=== PATIENT | male | born 1960 | race American Indian/Alaskan Native ===

== ENCOUNTER 2019-03-12 14:22 | Emergency (ER) | payer MEDICAID ==
--- NOTE | 2019-03-12 16:11 | Emergency Department Report ---
ED General Adult HPI - General Chief complaint: Medical Clearance Stated complaint: BEHAVIORIAL ISSUES Time Seen by Provider: 03/12/19 14:54 Source: patient, EMS Mode of arrival: Stretcher Limitations: No Limitations - History of Present Illness Initial comments: The presents to the emergency department from [facility] because he refused to take his medications yesterday and also refused to eat today. Patient denies suicidal or homicidal ideation. Patient also denies auditory or visual hallucinations. Patient states yesterday he refused to take his medications once and today refused to eat because he did not want to. The patient is able to answer all my questions appropriately Severity scale (0 -10): 0 Consistency: constant Improves with: none Worsens with: none Associated Symptoms: denies other symptoms Treatments Prior to Arrival: none - Related Data Allergies Allergy/AdvReac Type Severity Reaction Status Date / Time No Known Allergies Allergy Unverified 03/12/19 14:24 ED Review of Systems ROS: Stated complaint: BEHAVIORIAL ISSUES Other details as noted in HPI Comment: All other systems reviewed and negative Constitutional: denies: chills, fever Eyes: denies: eye pain, eye discharge, vision change ENT: denies: ear pain, throat pain Respiratory: denies: cough, shortness of breath, wheezing Cardiovascular: denies: chest pain, palpitations Endocrine: no symptoms reported Gastrointestinal: denies: abdominal pain, nausea, diarrhea Genitourinary: denies: urgency, dysuria Musculoskeletal: denies: back pain, joint swelling, arthralgia Skin: denies: rash, lesions Neurological: denies: headache, weakness, paresthesias Psychiatric: denies: anxiety, depression Hematological/Lymphatic: denies: easy bleeding, easy bruising ED Past Medical Hx - Past Medical History Hx Psychiatric Treatment: (bipolar, MDD) - Social History Smoking Status: Never Smoker Substance Use Type: None ED Physical Exam - General Limitations: No Limitations General appearance: alert, in no apparent distress - Head Head exam: Present: atraumatic, normocephalic - Eye Eye exam: Present: normal appearance, PERRL, EOMI - ENT ENT exam: Present: mucous membranes moist - Neck Neck exam: Present: normal inspection - Respiratory Respiratory exam: Present: normal lung sounds bilaterally. Absent: respiratory distress - Cardiovascular Cardiovascular Exam: Present: regular rate, normal rhythm. Absent: systolic murmur, diastolic murmur, rubs, gallop - GI/Abdominal GI/Abdominal exam: Present: soft, normal bowel sounds. Absent: distended, tenderness - Rectal Rectal exam: Present: deferred - Extremities Exam Extremities exam: Present: normal inspection - Back Exam Back exam: Present: normal inspection - Neurological Exam Neurological exam: Present: alert, oriented X3, CN II-XII intact. Absent: motor sensory deficit - Psychiatric Psychiatric exam: Present: normal affect, normal mood. Absent: homicidal ideation, suicidal ideation - Skin Skin exam: Present: warm, dry, intact, normal color. Absent: rash ED Course Vital Signs 03/12/19 14:31 Temperature 98.8 F Pulse Rate 67 Respiratory 17 Rate Blood Pressure 165/72 [Left] O2 Sat by Pulse 97 Oximetry ED Medical Decision Making - Medical Decision Making Contacted the Nurse at [facility] and the patient was discussed in detail. The reason for presentation was confirmed with the nurse. Patient will be sent back to their facility Critical care attestation.: If time is entered above; I have spent that time in minutes in the direct care of this critically ill patient, excluding procedure time. ED Disposition Clinical Impression: Behavior concern in adult Disposition: DC-01 TO HOME OR SELFCARE Is pt being admited?: No Does the pt Need Aspirin: No Condition: Stable Additional Instructions: return if worse Referrals: [facility] [Outside] - 3-5 Days Time of Disposition: 16:12
[2019-03-12 16:51] VITALS: BP 159/73
== END 2019-03-12 17:27 | disposition home or self-care (01) ==
LOC: ED 14:22 → EEVIPCON 14:22 → ED 17:27
DX: R46.89 Other symptoms and signs involving appearance and behavior (principal); F31.9 Bipolar disorder, unspecified; F32.9 Major depressive disorder, single episode, unspecified

== ENCOUNTER 2020-04-19 11:34 | Emergency (ER) | payer MEDICAID ==
--- NOTE | 2020-04-19 12:36 | Emergency Department Report ---
ED Psych HPI - General Chief Complaint: Psych Stated Complaint: SUICIDAL IDEATION Time Seen by Provider: 04/19/20 11:54 Source: EMS Mode of arrival: Ambulatory - History of Present Illness Initial Comments: 60-year male with a past medical history of bipolar disorder, schizophrenia, and hypertension presents to the hospital with complaints of suicidal ideation since breaking up with his girlfriend this morning. Patient states he tried to drown herself in the pool this morning. He has been noncompliant with his blood pressure medication and psychiatric medication for the last 3 months. He denies auditory hallucinations he denies any complaints of cough, fever, chest pain, shortness of breath, or abdominal pain. - Related Data Allergies Allergy/AdvReac Type Severity Reaction Status Date / Time No Known Allergies Allergy Unverified 03/12/19 14:24 ED Review of Systems ROS: Stated complaint: SUICIDAL IDEATION Other details as noted in HPI ED Past Medical Hx - Past Medical History Previous Medical History?: Yes Hx Hypertension: Yes Hx Psychiatric Treatment: Yes (bipolar, MDD) - Surgical History Past Surgical History?: No - Social History Smoking Status: Current Every Day Smoker Substance Use Type: None ED Physical Exam - General Limitations: No Limitations - Other Other exam information: General: No acute distress Head: Atraumatic Eyes: normal appearance ENT: Moist mucous membranes Neck: Normal appearance, no midline tenderness Chest: Clear to auscultation bilaterally CV: Regular rate and rhythm Abdomen: Soft, normal bowel sounds, nontender, nondistended, no rebound or guarding Back: Normal inspection Extremity: Normal inspection, full range of motion Neuro: Alert O x 3, no facial asymmetry, speech clear, no gross motor sensory deficit Psych: Appropriate behavior Skin: No rash ED Course Vital Signs 04/19/20 04/19/20 04/19/20 11:37 18:51 21:36 Temperature 99.9 F H 99.9 F H Pulse Rate 107 H 88 Respiratory 18 18 14 Rate Blood Pressure 169/90 126/67 [Left] O2 Sat by Pulse 95 94 97 Oximetry ED Medical Decision Making - Lab Data Result diagrams: 04/19/20 12:32 04/19/20 12:32 Lab Results 04/19/20 04/19/20 04/19/20 Range/Units 12:32 12:32 12:32 WBC 15.3 H (4.5-11.0) K/mm3 RBC 5.04 H (3.65-5.03) M/mm3 Hgb 15.0 (11.8-15.2) gm/dl Hct 45.4 (35.5-45.6) % MCV 90 (84-94) fl MCH 30 (28-32) pg MCHC 33 (32-34) % RDW 14.3 (13.2-15.2) % Plt Count 317 (140-440) K/mm3 Lymph % (Auto) 15.2 (13.4-35.0) % [place] % (Auto) 7.6 H (0.0-7.3) % Eos % (Auto) 0.5 (0.0-4.3) % Baso % (Auto) 0.5 (0.0-1.8) % Lymph # 2.3 (1.2-5.4) K/mm3 [place] # 1.2 H (0.0-0.8) K/mm3 Eos # 0.1 (0.0-0.4) K/mm3 Baso # 0.1 (0.0-0.1) K/mm3 Seg Neutrophils % 76.2 H (40.0-70.0) % Seg Neutrophils # 11.7 H (1.8-7.7) K/mm3 Sodium 142 (137-145) mmol/L Potassium 3.8 (3.6-5.0) mmol/L Chloride 102.0 (98-107) mmol/L Carbon Dioxide 25 (22-30) mmol/L Anion Gap 19 mmol/L BUN 25 H (9-20) mg/dL Creatinine 1.3 (0.8-1.3) mg/dL Estimated GFR > 60 ml/min BUN/Creatinine Ratio 19 % Glucose 143 H (75-100) mg/dL Calcium 9.6 (8.4-10.2) mg/dL Total Bilirubin 0.60 (0.1-1.2) mg/dL AST 21 (5-40) units/L ALT 20 (7-56) units/L Alkaline Phosphatase 99 (35-129) units/L Total Protein 7.5 (6.3-8.2) g/dL Albumin 4.6 (3.9-5) g/dL Albumin/Globulin Ratio 1.6 % Urine Color (Yellow) Urine Turbidity (Clear) Urine pH (5.0-7.0) Ur Specific [place] (1.003-1.030) Urine Protein (Negative) mg/dL Urine Glucose (UA) (Negative) mg/dL Urine Ketones (Negative) mg/dL Urine Blood (Negative) Urine Nitrite (Negative) Urine Bilirubin (Negative) Urine Urobilinogen (<2.0) mg/dL Ur Leukocyte Esterase (Negative) Urine WBC (Auto) (0.0-6.0) /HPF Urine RBC (Auto) (0.0-6.0) /HPF U Epithel Cells (Auto) (0-13.0) /HPF Urine Mucus /HPF Salicylates < 0.3 L (2.8-20.0) mg/dL Urine Opiates Screen Urine Methadone Screen Acetaminophen (10.0-30.0) ug/mL Ur Barbiturates Screen Ur Phencyclidine Scrn Ur Amphetamines Screen U Benzodiazepines Scrn Urine Cocaine Screen U Marijuana (THC) Screen Drugs of Abuse Note Plasma/Serum Alcohol (0-0.07) % 04/19/20 04/19/20 04/19/20 Range/Units 12:32 12:32 12:51 WBC (4.5-11.0) K/mm3 RBC (3.65-5.03) M/mm3 Hgb (11.8-15.2) gm/dl Hct (35.5-45.6) % MCV (84-94) fl MCH (28-32) pg MCHC (32-34) % RDW (13.2-15.2) % Plt Count (140-440) K/mm3 Lymph % (Auto) (13.4-35.0) % [place] % (Auto) (0.0-7.3) % Eos % (Auto) (0.0-4.3) % Baso % (Auto) (0.0-1.8) % Lymph # (1.2-5.4) K/mm3 [place] # (0.0-0.8) K/mm3 Eos # (0.0-0.4) K/mm3 Baso # (0.0-0.1) K/mm3 Seg Neutrophils % (40.0-70.0) % Seg Neutrophils # (1.8-7.7) K/mm3 Sodium (137-145) mmol/L Potassium (3.6-5.0) mmol/L Chloride (98-107) mmol/L Carbon Dioxide (22-30) mmol/L Anion Gap mmol/L BUN (9-20) mg/dL Creatinine (0.8-1.3) mg/dL Estimated GFR ml/min BUN/Creatinine Ratio % Glucose (75-100) mg/dL Calcium (8.4-10.2) mg/dL Total Bilirubin (0.1-1.2) mg/dL AST (5-40) units/L ALT (7-56) units/L Alkaline Phosphatase (35-129) units/L Total Protein (6.3-8.2) g/dL Albumin (3.9-5) g/dL Albumin/Globulin Ratio % Urine Color Yellow (Yellow) Urine Turbidity Clear (Clear) Urine pH 7.0 (5.0-7.0) Ur Specific [place] 1.016 (1.003-1.030) Urine Protein <15 mg/dl (Negative) mg/dL Urine Glucose (UA) Neg (Negative) mg/dL Urine Ketones Neg (Negative) mg/dL Urine Blood Sm (Negative) Urine Nitrite Neg (Negative) Urine Bilirubin Neg (Negative) Urine Urobilinogen < 2.0 (<2.0) mg/dL Ur Leukocyte Esterase Neg (Negative) Urine WBC (Auto) 1.0 (0.0-6.0) /HPF Urine RBC (Auto) 7.0 (0.0-6.0) /HPF U Epithel Cells (Auto) < 1.0 (0-13.0) /HPF Urine Mucus Few /HPF Salicylates (2.8-20.0) mg/dL Urine Opiates Screen Urine Methadone Screen Acetaminophen 5.0 L (10.0-30.0) ug/mL Ur Barbiturates Screen Ur Phencyclidine Scrn Ur Amphetamines Screen U Benzodiazepines Scrn Urine Cocaine Screen U Marijuana (THC) Screen Drugs of Abuse Note Plasma/Serum Alcohol < 0.01 (0-0.07) % 04/19/20 Range/Units 12:51 WBC (4.5-11.0) K/mm3 RBC (3.65-5.03) M/mm3 Hgb (11.8-15.2) gm/dl Hct (35.5-45.6) % MCV (84-94) fl MCH (28-32) pg MCHC (32-34) % RDW (13.2-15.2) % Plt Count (140-440) K/mm3 Lymph % (Auto) (13.4-35.0) % [place] % (Auto) (0.0-7.3) % Eos % (Auto) (0.0-4.3) % Baso % (Auto) (0.0-1.8) % Lymph # (1.2-5.4) K/mm3 [place] # (0.0-0.8) K/mm3 Eos # (0.0-0.4) K/mm3 Baso # (0.0-0.1) K/mm3 Seg Neutrophils % (40.0-70.0) % Seg Neutrophils # (1.8-7.7) K/mm3 Sodium (137-145) mmol/L Potassium (3.6-5.0) mmol/L Chloride (98-107) mmol/L Carbon Dioxide (22-30) mmol/L Anion Gap mmol/L BUN (9-20) mg/dL Creatinine (0.8-1.3) mg/dL Estimated GFR ml/min BUN/Creatinine Ratio % Glucose (75-100) mg/dL Calcium (8.4-10.2) mg/dL Total Bilirubin (0.1-1.2) mg/dL AST (5-40) units/L ALT (7-56) units/L Alkaline Phosphatase (35-129) units/L Total Protein (6.3-8.2) g/dL Albumin (3.9-5) g/dL Albumin/Globulin Ratio % Urine Color (Yellow) Urine Turbidity (Clear) Urine pH (5.0-7.0) Ur Specific [place] (1.003-1.030) Urine Protein (Negative) mg/dL Urine Glucose (UA) (Negative) mg/dL Urine Ketones (Negative) mg/dL Urine Blood (Negative) Urine Nitrite (Negative) Urine Bilirubin (Negative) Urine Urobilinogen (<2.0) mg/dL Ur Leukocyte Esterase (Negative) Urine WBC (Auto) (0.0-6.0) /HPF Urine RBC (Auto) (0.0-6.0) /HPF U Epithel Cells (Auto) (0-13.0) /HPF Urine Mucus /HPF Salicylates (2.8-20.0) mg/dL Urine Opiates Screen Negative Urine Methadone Screen Negative Acetaminophen (10.0-30.0) ug/mL Ur Barbiturates Screen Negative Ur Phencyclidine Scrn Negative Ur Amphetamines Screen Negative U Benzodiazepines Scrn Negative Urine Cocaine Screen Negative U Marijuana (THC) Screen Negative Drugs of Abuse Note Disclamer Plasma/Serum Alcohol (0-0.07) % - EKG Data -: EKG Interpreted by Me EKG shows normal: sinus rhythm, ST-T waves (no stemi) Rate: normal (92) - Radiology Data Radiology results: report reviewed XR chest routine 2V INDICATION / CLINICAL INFORMATION: elevated wbc count COMPARISON: None available. FINDINGS: SUPPORT DEVICES: None. HEART / MEDIASTINUM: No significant abnormality. LUNGS / PLEURA: Lungs are clear. Costophrenic sulci are sharp. No pneumothorax. ADDITIONAL FINDINGS: No significant additional findings. IMPRESSION: 1. No acute findings. - Medical Decision Making Patient presents to the hospital requesting mental health for suicidal ideation. Patient not currently taking any medications for chronic hypertension or his underlying psychiatric disorder. Suicidal thoughts with plan triggered by recent break-up with a girlfriend. Patient did have a mild tachycardia on initial vital signs but corrected upon EKG with sinus rhythm noted. repeat vit als show improvement in tachycardia and bp. Patient has a mild leukocytosis with a normal chest x-ray, normal UA, and no infectious symptoms. Patient is noted to have mild dehydration which can be corrected with oral p.o. intake. Patient medically clear for inpatient psychiatric admission Critical Care Time: No Critical care attestation.: If time is entered above; I have spent that time in minutes in the direct care of this critically ill patient, excluding procedure time. ED Disposition Clinical Impression: Suicidal ideations, Medical clearance for psychiatric admission, Schizophrenia, Depression Disposition: DC/TX-65 PSY HOSP/PSY UNIT Is pt being admited?: No Condition: Stable
[2020-04-19 13:06] LABS: Bilirubin,Urine NEG (Negative); Blood,Urine SM (Negative); Color,Urine Yellow (Yellow); Mucus,Urine FEW /HPF; Protein,Urine <15 mg/dL mg/dL (Negative); Urobilinogen,Urine < 2.0 mg/dL (<2.0)
[2020-04-19 13:14] LABS: Amphetamine Screen,Urine Negative; Benzodiazepines Screen,Urine Negative; Cannabinoid Screen,Urine Negative; Cocaine Screen,Urine Negative; Methadone Screen,Urine Negative; Opiate Screen,Urine Negative
[2020-04-19 13:36] LABS: Basophils # (Auto) 0.1 K/mm3 (0.0-0.1); Basophils % (Auto) 0.5 % (0.0-1.8); Eosinophils # (Auto) 0.1 K/mm3 (0.0-0.4); Eosinophils % (Auto) 0.5 % (0.0-4.3); Hematocrit 45.4 % (35.5-45.6); Lymphocytes # (Auto) 2.3 K/mm3 (1.2-5.4); Lymphocytes % (Auto) 15.2 % (13.4-35.0); Mean Corpuscular HGB Conc 33 % (32-34); Mean Corpuscular Volume 90 fl (84-94); Monocytes # (Auto) 1.2 K/mm3 (0.0-0.8); Monocytes % (Auto) 7.6 % (0.0-7.3); Platelet Count 317 K/mm3 (140-440); Red Blood Count 5.04 M/mm3 (3.65-5.03); Red Cell Distribution Width 14.3 % (13.2-15.2)
[2020-04-19 13:58] LABS: Alanine Aminotransferase 20 units/L (7-56); Albumin 4.6 g/dL (3.9-5); BUN/Creatinine Ratio 19; Blood Urea Nitrogen 25 mg/dL (9-20); Calcium 9.6 mg/dL (8.4-10.2); Hemolysis Index 14
--- NOTE | 2020-04-19 17:17 | XRay Report ---
XR chest routine 2V INDICATION / CLINICAL INFORMATION: elevated wbc count COMPARISON: None available. FINDINGS: SUPPORT DEVICES: None. HEART / MEDIASTINUM: No significant abnormality. LUNGS / PLEURA: Lungs are clear. Costophrenic sulci are sharp. No pneumothorax. ADDITIONAL FINDINGS: No significant additional findings. IMPRESSION: 1. No acute findings. Signer Name: Kelvin Avila MD Signed: 04/19/2020 5:13 PM Workstation Name: [id number]
[2020-04-19 18:52] VITALS: BP 126/67
== END 2020-04-20 01:15 ==
LOC: ED 11:34
DX: R45.851 Suicidal ideations (principal); F20.9 Schizophrenia, unspecified; F32.9 Major depressive disorder, single episode, unspecified; Z04.6 Encounter for general psychiatric examination, requested by authority; I10 Essential (primary) hypertension; F17.200 Nicotine dependence, unspecified, uncomplicated
CPT/HCPCS: 36415; 71046; 80053; 80307; 80320; 81001; 85025; 93005; G0480

== ENCOUNTER 2021-05-23 00:24 | Emergency (ER) | payer MEDICAID ==
[2021-05-23 01:10] VITALS: BP 168/101
[2021-05-23] MEDS ORDERED: traZODone 50 MG TAB PO ONE (02:50)
--- NOTE | 2021-05-23 03:13 | Emergency Department Report ---
ED General Adult HPI - General Chief complaint: Medical Clearance Stated complaint: INSUMNIA/CHEST PAIN Source: patient, EMS Mode of arrival: Ambulatory Limitations: No Limitations - History of Present Illness Initial comments: Patient is a 61-year-old white male with a history of bipolar disorder, major depressive disorder, and hypertension who presented to the ED with complaint of persistent insomnia after his girlfriend was diagnosed with cancer and is currently undergoing chemotherapy at another hospital. Patient states that whenever he goes to sleep he only sleeps for 1 hour, and the rest of the night he keeps thinking about his girlfriend. Patient denies suicidal or homicidal ideation, hallucinations, nausea and vomiting, chest pain or shortness of breath, abdominal pain, dizziness, syncope, headache, fever, chills, cough or back pain. MD Complaint: Insomnia, chronic depression -: Sudden, days(s) (20) Location: head Radiation: non-radiation Severity scale (0 -10): 0 Quality: constant Consistency: intermittent Improves with: none Worsens with: none Associated Symptoms: denies other symptoms, loss of appetite, malaise. denies: confusion, chest pain, cough, diaphoresis, fever/chills, headaches, nausea/vomiting, rash, seizure, shortness of breath, syncope, weakness Treatments Prior to Arrival: none - Related Data Previous Rx's Medication Instructions Recorded Last Taken Type traZODone [Desyrel] 50 mg PO QHS PRN #30 tab 05/23/21 Unknown Rx Allergies Allergy/AdvReac Type Severity Reaction Status Date / Time No Known Allergies Allergy Verified 05/23/21 01:02 ED Review of Systems ROS: Stated complaint: INSUMNIA/CHEST PAIN Other details as noted in HPI Constitutional: other (Insomnia). denies: chills, fever Eyes: denies: eye pain, eye discharge, vision change ENT: denies: ear pain, throat pain Respiratory: denies: cough, shortness of breath, wheezing Cardiovascular: denies: chest pain, palpitations Endocrine: no symptoms reported Gastrointestinal: denies: abdominal pain, nausea, diarrhea Genitourinary: denies: urgency, dysuria Musculoskeletal: denies: back pain, joint swelling, arthralgia Skin: denies: rash, lesions Neurological: denies: headache, weakness, paresthesias Psychiatric: anxiety, depression. denies: auditory hallucinations, visual hallucinations, homicidal thoughts, suicidal thoughts Hematological/Lymphatic: denies: easy bleeding, easy bruising ED Past Medical Hx - Past Medical History Hx Hypertension: Yes Hx Psychiatric Treatment: (bipolar, MDD) - Social History Smoking Status: Current Every Day Smoker Substance Use Type: None - Medications Home Medications: Home Medications Medication Instructions Recorded Confirmed Last Taken Type traZODone [Desyrel] 50 mg PO QHS PRN #30 tab 05/23/21 Unknown Rx ED Physical Exam - General Limitations: No Limitations General appearance: alert, in no apparent distress - Head Head exam: Present: atraumatic, normocephalic, normal inspection - Eye Eye exam: Present: normal appearance, PERRL, EOMI Pupils: Present: normal accommodation - ENT ENT exam: Present: normal exam, normal orophraynx, mucous membranes moist, TM's normal bilaterally, normal external ear exam - Neck Neck exam: Present: normal inspection, full ROM - Respiratory Respiratory exam: Present: normal lung sounds bilaterally. Absent: respiratory distress, wheezes, rales, rhonchi, chest wall tenderness, accessory muscle use, decreased breath sounds, prolonged expiratory - Cardiovascular Cardiovascular Exam: Present: regular rate, normal rhythm, normal heart sounds. Absent: systolic murmur, diastolic murmur, rubs, gallop - GI/Abdominal GI/Abdominal exam: Present: soft, normal bowel sounds. Absent: tenderness, guarding, rebound, hyperactive bowel sounds, hypoactive bowel sounds - Extremities Exam Extremities exam: Present: normal inspection, full ROM, normal capillary refill - Back Exam Back exam: Present: normal inspection, full ROM. Absent: tenderness, CVA tenderness (R), CVA tenderness (L), muscle spasm, paraspinal tenderness, vertebral tenderness - Neurological Exam Neurological exam: Present: alert, oriented X3, CN II-XII intact, normal gait, reflexes normal - Psychiatric Psychiatric exam: Present: normal affect, normal mood, depressed, anxious. Absent: flat affect, homicidal ideation, suicidal ideation - Skin Skin exam: Present: warm, dry, intact, normal color. Absent: rash ED Course Vital Signs 05/23/21 01:09 Temperature 98.9 F Pulse Rate 83 Respiratory 20 Rate Blood Pressure 168/101 [Left] O2 Sat by Pulse 96 Oximetry ED Medical Decision Making - Medical Decision Making This is a 61-year-old white male with a history of bipolar disorder, major depressive disorder, and hypertension who presented to the ED with complaint of persistent insomnia after his girlfriend was diagnosed with cancer and is currently undergoing chemotherapy at another hospital. Patient states that whenever he goes to sleep he only sleeps for 1 hour, and the rest of the night he keeps thinking about his girlfriend. In the ED, patient is alert and oriented x3 and is not in any distress, but appears anxious. Patient is however not suicidal or homicidal. Patient was treated in the ED with trazodone 50 mg p.o. x1 and discharged home on the same. Patient was advised to follow-up with his primary care physician in 3 to 5 days for reevaluation or return to the ED immediately if symptoms get worse. - Differential Diagnosis Insomnia; chronic depression; anxiety Critical care attestation.: If time is entered above; I have spent that time in minutes in the direct care of this critically ill patient, excluding procedure time. ED Disposition Clinical Impression: Insomnia due to psychological stress, Chronic depressive disorder Disposition: 01 HOME / SELF CARE / HOMELESS Is pt being admited?: No Does the pt Need Aspirin: No Condition: Stable Instructions: Persistent Depressive Disorder, Adult, [id number], Insomnia Additional Instructions: Take medication at night as needed for insomnia. Follow-up with your primary care physician in 3 to 5 days for reevaluation. Return to the ED immediately if symptoms get worse Prescriptions: traZODone [Desyrel] 50 mg PO QHS PRN #30 tab PRN Reason: Insomnia [facility] - 3-5 Days Time of Disposition: 03:12 Print Language: ROMANSH
== END 2021-05-23 03:52 | disposition home or self-care (01) ==
LOC: ED 00:24
DX: F51.02 Adjustment insomnia (principal); F34.1 Dysthymic disorder; I10 Essential (primary) hypertension; F17.200 Nicotine dependence, unspecified, uncomplicated
CPT/HCPCS: 99283

== ENCOUNTER 2021-05-23 15:21 | Emergency (ER) | payer MEDICAID ==
--- NOTE | 2021-05-23 17:58 | Emergency Department Report ---
ED General Adult HPI - General Chief complaint: Weakness Stated complaint: WEAKNESS Time Seen by Provider: 05/23/21 17:33 Source: patient Mode of arrival: Stretcher Limitations: No Limitations - History of Present Illness Initial comments: 62-year-old male patient presents for insomnia. Patient was seen early this morning for the same complaint. He denies any SI/HI or hallucinations. No chest pain, headache, dizziness, or shortness of breath. Patient was prescribed trazodone and states he has not filled his prescription. - Related Data Previous Rx's Medication Instructions Recorded Last Taken Type traZODone [Desyrel] 50 mg PO QHS PRN #30 tab 05/23/21 Unknown Rx Allergies Allergy/AdvReac Type Severity Reaction Status Date / Time No Known Allergies Allergy Verified 05/23/21 01:02 ED Review of Systems ROS: Stated complaint: WEAKNESS Other details as noted in HPI Constitutional: denies: chills, fever, malaise Respiratory: denies: cough, shortness of breath Cardiovascular: denies: chest pain Gastrointestinal: denies: abdominal pain Neurological: denies: headache, numbness, paresthesias ED Past Medical Hx - Past Medical History Hx Hypertension: Yes Hx Psychiatric Treatment: (bipolar, MDD) - Social History Smoking Status: Current Every Day Smoker Substance Use Type: None - Medications Home Medications: Home Medications Medication Instructions Recorded Confirmed Last Taken Type traZODone [Desyrel] 50 mg PO QHS PRN #30 tab 05/23/21 Unknown Rx ED Physical Exam - General Limitations: No Limitations General appearance: alert, in no apparent distress - Head Head exam: Present: atraumatic, normocephalic - Eye Eye exam: Present: normal appearance. Absent: scleral icterus - Respiratory Respiratory exam: Present: normal lung sounds bilaterally. Absent: respiratory distress - Cardiovascular Cardiovascular Exam: Present: regular rate, normal rhythm - Neurological Exam Neurological exam: Present: alert, oriented X3 - Psychiatric Psychiatric exam: Present: normal affect, normal mood - Skin Skin exam: Present: warm, dry, intact, normal color. Absent: rash ED Course Vital Signs 05/26/21 13:23 Temperature 98.2 F Pulse Rate 78 Respiratory 18 Rate Blood Pressure 160/84 [160/84] O2 Sat by Pulse 98 Oximetry ED Medical Decision Making - Medical Decision Making 62-year-old male patient presents for insomnia. Patient was seen early this morning for the same complaint. He denies any SI/HI or hallucinations. No chest pain, headache, dizziness, or shortness of breath. Patient was prescribed trazodone and states he has not filled his prescription. After initial evaluation, patient now stating he would like some pain medicine for chronic knee pain. He denies any injuries to his knees, swelling, skin changes, numbness/tingling/weakness in his legs, or fever/chills/sweats or history of cancer. Patient is also requesting sleep medicine again even though he just had a prescription for trazodone. Recommend patient feels his trazodone prescription and follows up outpatient with primary care or psychiatrist. Critical care attestation.: If time is entered above; I have spent that time in minutes in the direct care of this critically ill patient, excluding procedure time. ED Disposition Clinical Impression: Insomnia due to psychological stress Disposition: 01 HOME / SELF CARE / HOMELESS Is pt being admited?: No Condition: Stable Instructions: Insomnia Referrals: [facility] [Provider Group] - 3-5 Days
[2021-05-26 13:25] VITALS: BP 160/84
== END 2021-05-23 18:34 | disposition home or self-care (01) ==
LOC: ED 15:21
DX: F51.04 Psychophysiologic insomnia (principal); G47.9 Sleep disorder, unspecified; I10 Essential (primary) hypertension; F17.200 Nicotine dependence, unspecified, uncomplicated
CPT/HCPCS: 99282; 99283

== ENCOUNTER 2021-06-29 17:56 | Emergency (ER) | payer MEDICAID ==
[2021-06-29] MEDS ORDERED: ACETAMINOPHEN 325 MG TAB PO ONE (18:20)
--- NOTE | 2021-06-29 18:24 | Emergency Department Report ---
ED General Adult HPI - General Chief complaint: Medical Clearance Stated complaint: ALF REFUSED ENTRY Time Seen by Provider: 06/29/21 18:13 Source: patient, EMS Mode of arrival: Stretcher Limitations: No Limitations - History of Present Illness Initial comments: 61-year-old male with a past medical history hypertension, bipolar, and major depressive disorder presents to the hospital for confusion versus inability to ambulate. Patient was just discharged here this afternoon after a 5-day admission for possible sepsis. Patient was released from detention the day before presenting to the ED. During that time patient was treated for acute renal i njury, possible sepsis, had a negative Covid test, and had a CT read as possible subarachnoid hemorrhage which was then refuted by neurosurgery team. During admission patient refused repeat CAT scanning and also stated that he did not want to be discharged from the hospital because he had nowhere to go. Case management found a place for patient to go and upon arrival they refused to accept the patient because he could not or would not ambulate. Patient states that he can walk because he has pain all over and is worse with ambulation. He also states he is having trouble sleeping. He does not endorse any other complaints. As per medical record review patient's last blood work was perform ed on June 25. - Related Data Previous Rx's Medication Instructions Recorded Last Taken Type ARIPiprazole 5 mg PO QDAY #30 tablet 06/28/21 Unknown Rx Ascorbic Acid [Vitamin C] 500 mg PO BID #60 tablet 06/28/21 Unknown Rx Sertraline [Zoloft] 25 mg PO QDAY #30 tablet 06/28/21 Unknown Rx traZODone [Desyrel] 50 mg PO QHS PRN #30 tab 06/28/21 Unknown Rx Allergies Allergy/AdvReac Type Severity Reaction Status Date / Time No Known Allergies Allergy Verified 05/23/21 01:02 ED Review of Systems ROS: Stated complaint: ALF REFUSED ENTRY Other details as noted in HPI Comment: All other systems reviewed and negative ED Past Medical Hx - Past Medical History Previous Medical History?: Yes Hx Hypertension: Yes Hx Psychiatric Treatment: (bipolar, MDD) - Social History Smoking Status: Current Some Day Smoker - Medications Home Medications: Home Medications Medication Instructions Recorded Confirmed Last Taken Type ARIPiprazole 5 mg PO QDAY #30 tablet 06/28/21 Unknown Rx Ascorbic Acid [Vitamin C] 500 mg PO BID #60 tablet 06/28/21 Unknown Rx Sertraline [Zoloft] 25 mg PO QDAY #30 tablet 06/28/21 Unknown Rx traZODone [Desyrel] 50 mg PO QHS PRN #30 tab 06/28/21 Unknown Rx ED Physical Exam - General Limitations: No Limitations - Other Other exam information: General: No acute distress Head: Atraumatic Eyes: normal appearance ENT: Moist mucous membranes Neck: Normal appearance, no midline tenderness Chest: Clear to auscultation bilaterally CV: Regular rate and rhythm Abdomen: Soft, normal bowel sounds, nontender, nondistended, no rebound or guarding Back: Normal inspection. Generalized tenderness to lower back muscles without isolated lumbar tender Extremity: Normal inspection, full range of motion Neuro: Alert O x 3, no facial asymmetry, speech clear, equal handgrip. 5/5 leg strength with knee extension while sitting. Ufmqls-aziy-gjmufm function intact Psych: Appropriate behavior Skin: No rash ED Course Vital Signs 06/29/21 06/29/21 06/29/21 18:04 19:12 20:17 Temperature 98 F Pulse Rate 74 Pulse Rate [ 72 Lying] Pulse Rate [ 82 Sitting] Pulse Rate [ 92 H Standing] Respiratory 16 Rate Blood Pressure 158/88 [Lying] Blood Pressure 144/92 [Right] Blood Pressure 144/100 [Sitting] Blood Pressure 163/105 [Standing] O2 Sat by Pulse 98 100 Oximetry 06/30/21 06/30/21 06/30/21 02:10 06:05 07:30 Temperature Pulse Rate 82 79 Pulse Rate [ Lying] Pulse Rate [ Sitting] Pulse Rate [ Standing] Respiratory 18 18 Rate Blood Pressure [Lying] Blood Pressure 123/86 129/79 [Right] Blood Pressure [Sitting] Blood Pressure [Standing] O2 Sat by Pulse 98 96 98 Oximetry 06/30/21 07/01/21 07/01/21 15:40 01:12 10:03 Temperature 98.1 F 97.9 F 97.5 F L Pulse Rate 76 71 81 Pulse Rate [ Lying] Pulse Rate [ Sitting] Pulse Rate [ Standing] Respiratory 14 16 18 Rate Blood Pressure [Lying] Blood Pressure 126/82 126/71 133/100 [Right] Blood Pressure [Sitting] Blood Pressure [Standing] O2 Sat by Pulse 98 100 98 Oximetry ED Medical Decision Making - Lab Data Result diagrams: 06/29/21 18:30 06/29/21 18:30 Lab Results 06/29/21 06/29/21 Range/Units 18:30 18:30 WBC 11.1 H (4.5-11.0) K/mm3 RBC 5.22 H (3.65-5.03) M/mm3 Hgb 13.0 (11.8-15.2) gm/dl Hct 40.5 (35.5-45.6) % MCV 78 L (84-94) fl MCH 25 L (28-32) pg MCHC 32 (32-34) % RDW 18.0 H (13.2-15.2) % Plt Count 333 (140-440) K/mm3 Lymph % (Auto) 20.0 (13.4-35.0) % [place] % (Auto) 8.1 H (0.0-7.3) % Eos % (Auto) 2.1 (0.0-4.3) % Baso % (Auto) 0.4 (0.0-1.8) % Lymph # (Auto) 2.2 (1.2-5.4) K/mm3 [place] # (Auto) 0.9 H (0.0-0.8) K/mm3 Eos # (Auto) 0.2 (0.0-0.4) K/mm3 Baso # (Auto) 0.0 (0.0-0.1) K/mm3 Seg Neutrophils % 69.4 (40.0-70.0) % Seg Neutrophils # 7.7 (1.8-7.7) K/mm3 Sodium 137 (137-145) mmol/L Potassium 3.8 (3.6-5.0) mmol/L Chloride 98.6 (98-107) mmol/L Carbon Dioxide 24 (22-30) mmol/L Anion Gap 18 mmol/L BUN 16 (9-20) mg/dL Creatinine 0.7 L (0.8-1.3) mg/dL Estimated GFR > 60 ml/min BUN/Creatinine Ratio 23 % Glucose 109 H (75-100) mg/dL Calcium 8.8 (8.4-10.2) mg/dL Magnesium 2.00 (1.7-2.3) mg/dL Total Bilirubin 0.50 (0.1-1.2) mg/dL AST 58 H (5-40) units/L ALT 109 H (7-56) units/L Alkaline Phosphatase 154 H (35-129) units/L Total Creatine Kinase 41 L (55-170) units/L Total Protein 7.0 (6.3-8.2) g/dL Albumin 3.8 L (3.9-5) g/dL Albumin/Globulin Ratio 1.2 % - Medical Decision Making 61 yo male recently discharged now bounces back to the ED due to refusal by the group staff personal-skilled nursing because he either could not or refused to walk. As per chart review patient stated that he did not want to be discharged. Patient has good strength of upper lower extremities while sitting. Patient endorses that he cannot walk because he has total body pain. Labs unremarkable. Mild increase in heart rate with standing therefore 1 L of IV fluids provided. Tylenol provided for pain. Patient was considered medically cleared for discharge from the hospital and no acute processes has been identified during ED evaluation therefore patient expected to be discharged. Case management consultation requested. Physical therapy consultation also requested - Differential Diagnosis Weakness, dehydration, malingering, electrolyte Critical Care Time: No Critical care attestation.: If time is entered above; I have spent that time in minutes in the direct care of this critically ill patient, excluding procedure time. ED Disposition Clinical Impression: Need for case management follow-up Disposition: 01 HOME / SELF CARE / HOMELESS Is pt being admited?: No Condition: Stable Referrals: [facility] [Provider Group] - 3-5 Days PRIMARY [facility]ARE, [Primary Care Provider] - 3-5 Days
[2021-06-29 18:56] LABS: Basophils % (Auto) 0.4 % (0.0-1.8); Eosinophils # (Auto) 0.2 K/mm3 (0.0-0.4); Eosinophils % (Auto) 2.1 % (0.0-4.3); Hematocrit 40.5 % (35.5-45.6); Lymphocytes # (Auto) 2.2 K/mm3 (1.2-5.4); Mean Corpuscular HGB Conc 32 % (32-34); Mean Corpuscular Volume 78 fl (84-94); Monocytes # (Auto) 0.9 K/mm3 (0.0-0.8); Monocytes % (Auto) 8.1 % (0.0-7.3); Platelet Count 333 K/mm3 (140-440); Red Blood Count 5.22 M/mm3 (3.65-5.03)
[2021-06-29 19:04] LABS: Alanine Aminotransferase 109 units/L (7-56); Albumin 3.8 g/dL (3.9-5); Blood Urea Nitrogen 16 mg/dL (9-20); Calcium 8.8 mg/dL (8.4-10.2); Hemolysis Index 21
[2021-06-29 19:16] LABS: BUN/Creatinine Ratio 23
[2021-06-29] MEDS ORDERED: SODIUM CHLORIDE 0.9% 1000 ML 1,000 ML IV ONE (22:09)
[2021-06-29] MEDS ORDERED: ACETAMINOPHEN 500 MG TAB PO PRN (23:53)
[2021-06-30] MEDS ORDERED: traZODone 50 MG TAB PO PRN (11:59)
--- NOTE | 2021-06-30 11:59 | Event Note ---
Date: 06/30/21 Patient with no issues overnight. Still awaiting case management consult to resolve his placement issues.
[2021-06-30] MEDS: SERTRALINE 25 MG TAB PO SCH (14:19)
[2021-07-01] MEDS: SERTRALINE 25 MG TAB PO SCH (10:01)
[2021-07-01 10:04] VITALS: BP 133/100
== END 2021-07-01 11:28 | disposition home or self-care (01) ==
LOC: ED 17:56
DX: R26.2 Difficulty in walking, not elsewhere classified (principal); R41.0 Disorientation, unspecified; M79.18 Myalgia, other site; G47.00 Insomnia, unspecified; I10 Essential (primary) hypertension; F31.9 Bipolar disorder, unspecified; F17.200 Nicotine dependence, unspecified, uncomplicated
CPT/HCPCS: 36415; 80053; 82550; 83735; 85025; 99284; J7030

== ENCOUNTER 2021-07-19 10:32 | Emergency (ER) | payer MEDICAID ==
--- NOTE | 2021-07-19 10:58 | Emergency Department Report ---
HPI - General Chief Complaint: Psych Time Seen by Provider: 07/19/21 10:52 - HPI HPI: 61-year-old male presents to the emergency department via PD with a complaint of depression and suicidal ideations. The patient says that he has the plan to jump off of the balcony of his apartment. The patient was seen at [facility] yesterday and discharged this morning. He then went to the administrative office of his apartment complex and told him that he was planning to kill himself so PD was called. He has a history of depression and bipolar disorder. He says he has not been on medications for it for a while. He denies any cigarette use, alcohol use/dependence and says there has been no recent illicit drug use. He denies any homicidal ideations or any auditory or visual hallucinations. ED Past Medical Hx - Past Medical History Hx Hypertension: Yes Hx Psychiatric Treatment: (bipolar, MDD) - Social History Smoking Status: Current Some Day Smoker - Medications Home Medications: Home Medications Medication Instructions Recorded Confirmed Last Taken Type ARIPiprazole 5 mg PO QDAY #30 tablet 06/28/21 Unknown Rx Ascorbic Acid [Vitamin C] 500 mg PO BID #60 tablet 06/28/21 Unknown Rx Sertraline [Zoloft] 25 mg PO QDAY #30 tablet 06/28/21 Unknown Rx traZODone [Desyrel] 50 mg PO QHS PRN #30 tab 06/28/21 Unknown Rx ED Review of Systems ROS: Stated complaint: MENTAL HEALTH Other details as noted in HPI Comment: All other systems reviewed and negative Constitutional: denies: chills, fever Eyes: denies: eye pain, vision change ENT: denies: ear pain, throat pain Respiratory: denies: cough, shortness of breath Cardiovascular: denies: chest pain, palpitations Gastrointestinal: denies: abdominal pain, vomiting Genitourinary: denies: dysuria, discharge Musculoskeletal: denies: back pain, arthralgia Neurological: denies: headache, weakness Psychiatric: depression, suicidal thoughts. denies: auditory hallucinations, visual hallucinations, homicidal thoughts ED Course - Reevaluation(s) Reevaluation #1: 07/20/21 07:48 I reevaluated the patient today and he does not appear in any acute distress. The patient had renal insufficiency when his metabolic panel was checked yesterday with a creatinine of 2 and GFR of about 40. The patient did agree to receive the 2 L of IV fluid ordered, but then has refused to have a repeat metabolic panel since that time. The patient is also refusing to leave urine and even urinated on the floor. The patient is refusing a Covid test that would be required for any type of psychiatric placement. Patient is otherwise calm and appropriate and therefore I do not feel that, at this time, he requires any sedation. The patient is aware that without the repeat BMP, UA, and Covid test that he cannot be medically cleared. ED Medical Decision Making - Lab Data Result diagrams: 07/19/21 14:04 07/20/21 11:47 - Medical Decision Making This patient presents for a mental health evaluation with a complaint of suic idal ideations with a plan to jump off of his patio in order to kill himself. For this reason the patient has been made a 1013 and placed on an ED hold. We are still waiting for urinalysis. Normal-appearing CBC. BMP shows some renal insufficiency with a creatinine of 2 and a GFR of about 40. The patient was here 20 days ago and had normal kidney function. The patient will receive 2 L of IV fluid resuscitation and we will recheck his renal function at that time. We will continue to monitor the patient during his ED course. The patient finally allowed us to repeat his basic metabolic panel and his previous renal sufficiency has resolved. He has been seen by the psychiatric team and they feel that the patient should remain a 1013 and requires inpatient stabilization. Vital signs have been reassuring throughout his ED course. The patient is medically cleared for psychiatric placement. Critical Care Time: No Critical care attestation.: If time is entered above; I have spent that time in minutes in the direct care of this critically ill patient, excluding procedure time. ED Disposition Clinical Impression: Suicidal ideations Disposition: [address] [place] [address] Is pt being admited?: No Condition: Stable
[2021-07-19 14:40] LABS: Basophils % (Auto) 0.4 % (0.0-1.8); Calcium 9.3 mg/dL (8.4-10.2); Eosinophils # (Auto) 0.2 K/mm3 (0.0-0.4); Eosinophils % (Auto) 1.9 % (0.0-4.3); Hematocrit 37.1 % (35.5-45.6); Hemoglobin 11.7 gm/dl (11.8-15.2); Lymphocytes # (Auto) 1.3 K/mm3 (1.2-5.4); Lymphocytes % (Auto) 13.1 % (13.4-35.0); Mean Corpuscular HGB Conc 32 % (32-34); Mean Corpuscular Volume 80 fl (84-94); Monocytes # (Auto) 0.9 K/mm3 (0.0-0.8); Monocytes % (Auto) 9.6 % (0.0-7.3); Platelet Count 321 K/mm3 (140-440); Red Blood Count 4.67 M/mm3 (3.65-5.03); Red Cell Distribution Width 18.2 % (13.2-15.2)
[2021-07-19] MEDS ORDERED: SODIUM CHLORIDE 0.9% 1000 ML 1,000 ML IV ONE ×2 (15:01→15:02)
--- NOTE | 2021-07-20 10:10 | Consultation ---
History of Present Illness - Reason for Consult Consult date: 07/20/21 Reason for consult: suicidal ideation - History of Present Psychiatric Illness ED Note: 61-year-old male presents to the emergency department via PD with a complaint of depression and suicidal ideations. The patient says that he has the plan to jump off of the balcony of his apartment. The patient was seen at [facility] yesterday and discharged this morning. He then went to the administrative office of his apartment complex and told him that he was planning to kill himself so PD was called. He has a history of depression and bipolar disorder. He says he has not been on medications for it for a while. He denies any cigarette use, alcohol use/dependence and says there has been no recent illicit drug use. He denies any homicidal ideations or any auditory or visual hallucinations. Mamadou Quesada is a 61 year old male with a history of Bipolar disorder. In my interview with the patient, he is labile and irritable. The patient states he was trying to commit suicide yesterday by jumping off the balcony, he is unable to states recent stressor but states " I was just ready to kill myself." The patient endorses suicidal ideation without a plan; he reports having auditory and visual hallucinations stating voices are saying " can you give me a ride." PAST PSYCHIATRIC HISTORY Diagnoses: Bipolar Suicide attempts or Self-harm behavior: none reported Prior psychiatric hospitalizations: yes Substance Abuse history:marijuana, cocaine, heroine Previous psychiatric medications tried: Seroquel Outpatient treatment: unknown PAST MEDICAL HISTORY: none reported Family Psychiatric History: None reported or documented SOCIAL HISTORY Marital Status: Single Living Arrangements: Lives alone Employment Status: unemployed Access to guns/weapons: none reported Education: 12th History of Abuse: none reported Legal History: yes REVIEW OF SYSTEMS Constitutional: Negative for weight loss ENT: Negative for stridor Respiratory: Negative for cough or hemoptysis All other systems reviewed and are negative MENTAL STATUS EXAMINATION General Appearance and Behavior: Age appropriate, poor hygiene, wearing appropriate clothes, good eye contact, cooperative. Cooperation: Participating Psychomotor Behavior: , unremarkable and within normal limits Mood: labile/irritable Affect and affective range: congruent with stated mood Thought Process: goal directed Thought Content: Suicidal Intellectual Functioning: Average Suicidal Ideation: Yes Homicidal Ideation: Denies HI hallucinations: Intermittent auditory/visual Impulse Control: fair Insight and Judgment: Limited insight and poor judgment Memory: Normal Attention: Normal Orientation: Alert, oriented Assessment and Plan - Psychiatric problem (1) Bipolar Current Visit: Yes Status: Acute RECOMMENDATIONS Start Seroquel 50mg po QHS Start Seroquel 25mg po BID MEDICATIONS: Risks, benefits and alternatives of medications discussed with the patient, questions answered and consent obtained from patient. PSYCHOTHERAPY: Supportive psychotherapy provided MEDICAL: Per primary team DELIRIUM PRECAUTIONS: Please re-orient patient frequently, keep lights on during the day, and minimize benzodiazepines and opiates as these medications could worsen patient's confusion. 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 Please contact with any questions and/or concerns. Medications and Allergies Medications and Allergies Allergies Allergy/AdvReac Type Severity Reaction Status Date / Time No Known Allergies Allergy Verified 05/23/21 01:02 Home Medications Medication Instructions Recorded Confirmed Last Taken Type ARIPiprazole 5 mg PO QDAY #30 tablet 06/28/21 Unknown Rx Ascorbic Acid [Vitamin C] 500 mg PO BID #60 tablet 06/28/21 Unknown Rx Sertraline [Zoloft] 25 mg PO QDAY #30 tablet 06/28/21 Unknown Rx traZODone [Desyrel] 50 mg PO QHS PRN #30 tab 06/28/21 Unknown Rx Mental Status Exam - Vital signs Last Vital Signs Temp 98.7 F 07/19/21 19:40 Pulse 90 07/19/21 19:40 Resp 16 07/19/21 19:40 BP 145/81 07/19/21 19:40 Pulse Ox 96 07/19/21 19:40 Results Result Diagrams: 07/19/21 14:04 07/19/21 14:04 Abnormal lab results 07/19/21 07/19/21 Range/Units 14:04 14:04 Hgb 11.7 L (11.8-15.2) gm/dl MCV 80 L (84-94) fl MCH 25 L (28-32) pg RDW 18.2 H (13.2-15.2) % Lymph % (Auto) 13.1 L (13.4-35.0) % [place] % (Auto) 9.6 H (0.0-7.3) % [place] # (Auto) 0.9 H (0.0-0.8) K/mm3 Seg Neutrophils % 75.0 H (40.0-70.0) % BUN 31 H (9-20) mg/dL Creatinine 2.0 H (0.8-1.3) mg/dL Glucose 117 H (75-100) mg/dL All other labs normal.
[2021-07-20] MEDS ORDERED: LORazepam 2 MG/ML VIAL IM PRN (11:24)
--- NOTE | 2021-07-20 11:26 | Event Note ---
Date: 07/20/21 S: Patient refused vitals this morning as well as repeat labs. O: Vital Signs - 8 hr 07/20/21 10:25 Temperature 98.7 F Pulse Rate 98 H Respiratory 18 Rate Blood Pressure 108/59 [Right] O2 Sat by Pulse 99 Oximetry A: Bipolar disorder, suicidal ideation P: 1013, awaiting inpatient psych
[2021-07-20] MEDS: QUEtiapine 25 MG TAB PO SCH ×3 (11:44→22:33)
[2021-07-20 12:17] LABS: BUN/Creatinine Ratio 23; Blood Urea Nitrogen 25 mg/dL (9-20); Calcium 8.8 mg/dL (8.4-10.2); Hemolysis Index 3
[2021-07-21] MEDS: QUEtiapine 25 MG TAB PO SCH ×3 (09:47→22:08)
--- NOTE | 2021-07-21 10:59 | Progress Note ---
Subjective - Reason for Consult Consult date: 07/21/21 Reason for consult: suicidal ideation - Chief Complaint Chief complaint: The patient was seen this morning, he is calm but present with flat affect. He continues to endorse suicidal ideation with no plan and reports having auditory and visual hallucinations. REVIEW OF SYSTEMS Constitutional: Negative for weight loss ENT: Negative for stridor Respiratory: Negative for cough or hemoptysis All other systems reviewed and are negative MENTAL STATUS EXAMINATION General Appearance and Behavior: Age appropriate, poor hygiene, wearing appropriate clothes, good eye contact, cooperative. Cooperation: Participating Psychomotor Behavior: , unremarkable and within normal limits Mood: labile/irritable Affect and affective range: congruent with stated mood Thought Process: Disorganized Thought Content: Suicidal Intellectual Functioning: Average Suicidal Ideation: Yes Homicidal Ideation: Denies HI hallucinations: Intermittent auditory/visual Impulse Control: Questionable Insight and Judgment: Limited insight and poor judgment Memory: Normal Attention: Normal Orientation: Alert, oriented Assessment and Plan - Psychiatric problem (1) Bipolar Current Visit: Yes Status: Acute RECOMMENDATIONS Start Seroquel 50mg po QHS Start Seroquel 25mg po BID Depakote 250 mg po BID MEDICATIONS: Risks, benefits and alternatives of medications discussed with the patient, questions answered and consent obtained from patient. PSYCHOTHERAPY: Supportive psychotherapy provided MEDICAL: Per primary team DELIRIUM PRECAUTIONS: Please re-orient patient frequently, keep lights on during the day, and minimize benzodiazepines and opiates as these medications could worsen patient's confusion. 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 Please contact with any questions and/or concerns. Medications and Allergies Mental Status Exam - Vital signs Last Vital Signs Temp 97.7 F 07/21/21 10:43 Pulse 76 07/21/21 10:43 Resp 18 07/21/21 10:43 BP 163/82 07/21/21 10:43 Pulse Ox 100 07/21/21 10:48
[2021-07-21] MEDS: DIVALPROEX DR 250 MG TAB PO SCH ×2 (11:10→22:08)
--- NOTE | 2021-07-21 12:18 | Event Note ---
Date: 07/21/21 S: Patient refusing to be reportedly had a bowel movement on the floor. No other events reported overnight O: Vital Signs - 8 hr 07/21/21 07/21/21 10:43 10:48 Temperature 97.7 F Pulse Rate 76 Respiratory 18 Rate Blood Pressure 163/82 [Right] O2 Sat by Pulse 100 100 Oximetry A: Bipolar disorder P: 1013/awaiting inpatient psych
[2021-07-22] MEDS: QUEtiapine 25 MG TAB PO SCH ×2 (09:59→18:26)
[2021-07-22] MEDS: DIVALPROEX DR 250 MG TAB PO SCH (09:59)
--- NOTE | 2021-07-22 11:14 | Progress Note ---
Subjective Date of service: 07/22/21 Principal diagnosis: Bipolar Subjective Comment: The patient was seen today. He is lying on the floor. The patient verbalizes a history of bipolar and being off his meds for years. He also endorses suicidal thoughts. He says "I gotta do something. I just don't feel like being here." He says he's "very depressed and has a lot of issues going on." The patient says he has three brother who check on him, but not that often. He says he lives alone in [facility]. He denies hallucinations. Nursing staff says the patient will not get off the floor and urinates on himself. I asked the patient why was he urinating on himself, he says "I don't know." REVIEW OF SYSTEMS Constitutional: Negative for weight loss ENT: Negative for stridor Respiratory: Negative for cough or hemoptysis All other systems reviewed and are negative MENTAL STATUS EXAMINATION General Appearance and Behavior: Age appropriate, poor hygiene, wearing appropriate clothes, good eye contact, cooperative. Cooperation: Participating Psychomotor Behavior: , unremarkable and within normal limits Mood: labile/irritable Affect and affective range: congruent with stated mood Thought Process: Disorganized Thought Content: Suicidal Intellectual Functioning: Average Suicidal Ideation: Yes Homicidal Ideation: Denies HI hallucinations: Denies at present Impulse Control: Questionable Insight and Judgment: Limited insight and poor judgment Memory: Normal Attention: Normal Orientation: Alert, oriented Assessment and Plan (1) Bipolar Current Visit: Yes Status: Acute RECOMMENDATIONS Start Zoloft 25mg po daily Continue other meds MEDICATIONS: Risks, benefits and alternatives of medications discussed with the patient, questions answered and consent obtained from patient. PSYCHOTHERAPY: Supportive psychotherapy provided MEDICAL: Per primary team DELIRIUM PRECAUTIONS: Please re-orient patient frequently, keep lights on during the day, and minimize benzodiazepines and opiates as these medications could worsen patient's confusion. 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 Please contact with any questions and/or concerns. Medications and Allergies Allergies Allergy/AdvReac Type Severity Reaction Status Date / Time No Known Allergies Allergy Verified 05/23/21 01:02 Home Medications Medication Instructions Recorded Confirmed Last Taken Type ARIPiprazole 5 mg PO QDAY #30 tablet 06/28/21 Unknown Rx Ascorbic Acid [Vitamin C] 500 mg PO BID #60 tablet 06/28/21 Unknown Rx Sertraline [Zoloft] 25 mg PO QDAY #30 tablet 06/28/21 Unknown Rx traZODone [Desyrel] 50 mg PO QHS PRN #30 tab 06/28/21 Unknown Rx Active Meds: Active Medications Divalproex Sodium (Divalproex Dr 250 Mg Tab) 250 mg PO BID [facility] Last Admin: 07/22/21 09:59 Dose: 250 mg Documented by: Lorazepam (Lorazepam 2 Mg/Ml Vial) 2 mg IM Q8H PRN PRN Reason: Agitation Quetiapine Fumarate (Quetiapine 25 Mg Tab) 50 mg PO QHS [facility] Last Admin: 07/21/21 22:08 Dose: 50 mg Documented by: Quetiapine Fumarate (Quetiapine 25 Mg Tab) 25 mg PO 1000,1600 [facility] Last Admin: 07/22/21 09:59 Dose: 25 mg Documented by: Results - Results Labs/Vitals: Laboratory Last Values WBC 9.8 K/mm3 (4.5-11.0) 07/19/21 14:04 RBC 4.67 M/mm3 (3.65-5.03) 07/19/21 14:04 Hgb 11.7 gm/dl (11.8-15.2) L 07/19/21 14:04 Hct 37.1 % (35.5-45.6) 07/19/21 14:04 MCV 80 fl (84-94) L 07/19/21 14:04 MCH 25 pg (28-32) L 07/19/21 14:04 MCHC 32 % (32-34) 07/19/21 14:04 RDW 18.2 % (13.2-15.2) H 07/19/21 14:04 Plt Count 321 K/mm3 (140-440) 07/19/21 14:04 Lymph % (Auto) 13.1 % (13.4-35.0) L 07/19/21 14:04 Mcdonough % (Auto) 9.6 % (0.0-7.3) H 07/19/21 14:04 Eos % (Auto) 1.9 % (0.0-4.3) 07/19/21 14:04 Baso % (Auto) 0.4 % (0.0-1.8) 07/19/21 14:04 Lymph # (Auto) 1.3 K/mm3 (1.2-5.4) 07/19/21 14:04 Mcdonough # (Auto) 0.9 K/mm3 (0.0-0.8) H 07/19/21 14:04 Eos # (Auto) 0.2 K/mm3 (0.0-0.4) 07/19/21 14:04 Baso # (Auto) 0.0 K/mm3 (0.0-0.1) 07/19/21 14:04 Seg Neutrophils % 75.0 % (40.0-70.0) H 07/19/21 14:04 Seg Neutrophils # 7.4 K/mm3 (1.8-7.7) 07/19/21 14:04 Sodium 142 mmol/L (137-145) 07/20/21 11:47 Potassium 3.6 mmol/L (3.6-5.0) 07/20/21 11:47 Chloride 104.5 mmol/L (98-107) 07/20/21 11:47 Carbon Dioxide 26 mmol/L (22-30) 07/20/21 11:47 Anion Gap 15 mmol/L 07/20/21 11:47 BUN 25 mg/dL (9-20) H 07/20/21 11:47 Creatinine 1.1 mg/dL (0.8-1.3) 07/20/21 11:47 Estimated GFR > 60 ml/min 07/20/21 11:47 BUN/Creatinine Ratio 23 % 07/20/21 11:47 Glucose 90 mg/dL (75-100) 07/20/21 11:47 Calcium 8.8 mg/dL (8.4-10.2) 07/20/21 11:47 Plasma/Serum Alcohol < 0.01 % (0-0.07) 07/19/21 14:04 Coronavirus (PCR) Negative (Negative) 07/20/21 08:27 Last Vital Signs Temp 97.4 F L 07/22/21 03:04 Pulse 86 07/22/21 03:04 Resp 18 07/22/21 03:04 BP 135/109 07/22/21 03:04 Pulse Ox 100 07/22/21 03:04
--- NOTE | 2021-07-22 12:05 | Emergency Department Report ---
Blank Doc - Documentation Documentation: This patient has been medically cleared but the psychiatric team and/or [facility] is waiting for his urinalysis and UDS before he will be accepted to the [facility]. He is negative for Covid. There have been multiple attempts to obtain the patient's urine but he often is seen urinating on the floor and would not leave urine in a specimen cup for us to test. Vital signs reassuring. No events overnight or this morning other than continued noncompliance with his urinalysis. He was seen by the psychiatric nurse practitioner today, under Dr. Pimentel, and they continue to recommend inpatient stabilization. We will continue to monitor the patient during his ED course.
[2021-07-22] MEDS: SERTRALINE 25 MG TAB PO SCH (13:28)
[2021-07-22 14:33] LABS: Amphetamine Screen,Urine Negative; Benzodiazepines Screen,Urine Negative; Cannabinoid Screen,Urine Negative; Cocaine Screen,Urine Negative; Methadone Screen,Urine Negative; Opiate Screen,Urine Negative
[2021-07-22 14:47] LABS: Bilirubin,Urine NEG (Negative); Blood,Urine SM (Negative); Color,Urine Yellow (Yellow); Protein,Urine <15 mg/dL mg/dL (Negative); Urobilinogen,Urine < 2.0 mg/dL (<2.0); WBC,Urine < 1.0 /HPF (0.0-6.0)
[2021-07-23] MEDS: DIVALPROEX DR 250 MG TAB PO SCH ×4 (00:13→21:45)
[2021-07-23] MEDS: QUEtiapine 25 MG TAB PO SCH ×5 (00:13→21:46)
--- NOTE | 2021-07-23 10:04 | Progress Note ---
Subjective - Reason for Consult Consult date: 07/23/21 Reason for consult: SI - Chief Complaint Chief complaint: The patient was seen today. He says he feels tired and suicidal. He denies a plan, but states "I always want to kill myself." He says he hears things telling him to "do it." REVIEW OF SYSTEMS Constitutional: Negative for weight loss ENT: Negative for stridor Respiratory: Negative for cough or hemoptysis All other systems reviewed and are negative MENTAL STATUS EXAMINATION General Appearance and Behavior: Age appropriate, poor hygiene, wearing appropriate clothes, good eye contact, cooperative. Cooperation: Participating Psychomotor Behavior: , unremarkable and within normal limits Mood: labile/irritable Affect and affective range: congruent with stated mood Thought Process: Disorganized Thought Content: Suicidal Intellectual Functioning: Average Suicidal Ideation: Yes Homicidal Ideation: Denies HI hallucinations: Auditory Impulse Control: Questionable Insight and Judgment: Limited insight and poor judgment Memory: Normal Attention: Normal Orientation: Alert, oriented Assessment and Plan (1) Bipolar Current Visit: Yes Status: Acute RECOMMENDATIONS 1013 Continue meds MEDICATIONS: Risks, benefits and alternatives of medications discussed with the patient, laury mason answered and consent obtained from patient. PSYCHOTHERAPY: Supportive psychotherapy provided MEDICAL: Per primary team DELIRIUM PRECAUTIONS: Please re-orient patient frequently, keep lights on during the day, and minimize benzodiazepines and opiates as these medications could worsen patient's confusion. 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 Please contact with any questions and/or concerns. Mental Status Exam - Vital signs Last Vital Signs Temp 98.5 F 07/23/21 03:38 Pulse 84 07/23/21 03:38 Resp 18 07/23/21 03:38 BP 146/71 07/23/21 03:38 Pulse Ox 97 07/23/21 08:08
--- NOTE | 2021-07-23 10:37 | Emergency Department Report ---
Blank Doc - Documentation Documentation: Patient is without complaint this morning. We are waiting coronavirus swab for psychiatric admission.
[2021-07-23] MEDS: SERTRALINE 25 MG TAB PO SCH (11:34)
[2021-07-23 19:50] VITALS: BP 130/60
== END 2021-07-23 23:20 ==
LOC: ED 10:32
DX: R45.851 Suicidal ideations (principal); I10 Essential (primary) hypertension; F31.9 Bipolar disorder, unspecified; F17.200 Nicotine dependence, unspecified, uncomplicated; Z20.822 Contact with and (suspected) exposure to COVID-19
CPT/HCPCS: 36415; 80048; 80307; 81001; 85025; 96360; 99285; J2060; J7030; U0003; 80320; Q0162; G0480

== ENCOUNTER 2021-09-28 13:14 | Emergency (ER) | payer MEDICAID ==
[2021-09-28] MEDS ORDERED: SODIUM CHLORIDE 0.9% 1000 ML 1,000 ML IV ONE (15:22)
--- NOTE | 2021-09-28 23:06 | Emergency Department Report ---
- General Chief complaint: Weakness Stated complaint: WEAKNESS Time Seen by Provider: 09/28/21 15:21 Source: EMS Mode of arrival: Stretcher Limitations: No Limitations - History of Present Illness Initial comments: WEAKNESS X5 DAYS. A&OX3. pt was found by police well emily check , rito called because he was getting evicted , was found lying down for 5 days , history of alcoholism , stopped 15 days ago , no complaints a this moment MD Complaint: generalized weakness -: Gradual, days(s) Location: generalized Consistency: constant Improves with: none Worsens with: none - Related Data Previous Rx's Medication Instructions Recorded Last Taken Type ARIPiprazole 5 mg PO QDAY #30 tablet 06/28/21 Unknown Rx Ascorbic Acid [Vitamin C] 500 mg PO BID #60 tablet 06/28/21 Unknown Rx Sertraline [Zoloft] 25 mg PO QDAY #30 tablet 06/28/21 Unknown Rx traZODone [Desyrel] 50 mg PO QHS PRN #30 tab 06/28/21 Unknown Rx Allergies Allergy/AdvReac Type Severity Reaction Status Date / Time No Known Allergies Allergy Verified 09/28/21 14:52 ED Review of Systems ROS: Stated complaint: WEAKNESS Other details as noted in HPI Constitutional: denies: chills, fever Eyes: denies: eye pain, eye discharge, vision change ENT: denies: ear pain, throat pain Respiratory: denies: cough, shortness of breath, wheezing Cardiovascular: denies: chest pain, palpitations Endocrine: no symptoms reported Gastrointestinal: denies: abdominal pain, nausea, diarrhea Genitourinary: denies: urgency, dysuria Musculoskeletal: denies: back pain, joint swelling, arthralgia Skin: denies: rash, lesions Neurological: denies: headache, weakness, paresthesias Psychiatric: denies: anxiety, depression Hematological/Lymphatic: denies: easy bleeding, easy bruising ED Past Medical Hx - Past Medical History Hx Hypertension: Yes Hx Psychiatric Treatment: (bipolar, MDD) - Social History Smoking Status: Current Some Day Smoker - Medications Home Medications: Home Medications Medication Instructions Recorded Confirmed Last Taken Type ARIPiprazole 5 mg PO QDAY #30 tablet 06/28/21 Unknown Rx Ascorbic Acid [Vitamin C] 500 mg PO BID #60 tablet 06/28/21 Unknown Rx Sertraline [Zoloft] 25 mg PO QDAY #30 tablet 06/28/21 Unknown Rx traZODone [Desyrel] 50 mg PO QHS PRN #30 tab 06/28/21 Unknown Rx ED Physical Exam - General Limitations: No Limitations General appearance: alert, in no apparent distress - Head Head exam: Present: atraumatic, normocephalic - Eye Eye exam: Present: normal appearance - ENT ENT exam: Present: mucous membranes moist - Neck Neck exam: Present: normal inspection - Respiratory Respiratory exam: Present: normal lung sounds bilaterally. Absent: respiratory distress - Cardiovascular Cardiovascular Exam: Present: regular rate, normal rhythm. Absent: systolic murmur, diastolic murmur, rubs, gallop - GI/Abdominal GI/Abdominal exam: Present: soft, normal bowel sounds - Rectal Rectal exam: Present: deferred - Extremities Exam Extremities exam: Present: normal inspection - Back Exam Back exam: Present: normal inspection - Neurological Exam Neurological exam: Present: alert, oriented X3 - Psychiatric Psychiatric exam: Present: normal affect, normal mood - Skin Skin exam: Present: warm, dry, intact, normal color. Absent: rash ED Course Vital Signs 09/28/21 09/28/21 09/28/21 14:50 21:00 22:00 Temperature 97.9 F 97.9 F Pulse Rate 118 H 102 H Respiratory 20 20 20 Rate Blood Pressure 116/75 101/62 [Right] O2 Sat by Pulse 99 97 97 Oximetry 09/29/21 09/29/21 09/30/21 18:20 20:22 02:44 Temperature 98.0 F 98.4 F Pulse Rate 88 98 H 102 H Respiratory 19 18 18 Rate Blood Pressure 208/123 100/73 118/57 [Right] O2 Sat by Pulse 97 96 98 Oximetry 09/30/21 20:26 Temperature 98.0 F Pulse Rate 80 Respiratory 18 Rate Blood Pressure 110/68 [Right] O2 Sat by Pulse 96 Oximetry - Reevaluation(s) Reevaluation #1: 09/28/21 23:05 pt refused work up refused anuradha crowell , he claims he has no blood no SI or HI , schziphrenia off meds, but no acute symtpoms 09/28/21 23:05 will get case management consult in am Critical care attestation.: If time is entered above; I have spent that time in minutes in the direct care of this critically ill patient, excluding procedure time. ED Disposition Clinical Impression: Weakness Disposition: [facility] Is pt being admited?: No Does the pt Need Aspirin: No Condition: Stable Referrals: PRIMARY CARE, [Primary Care Provider] - 3-5 Days
--- NOTE | 2021-09-29 12:00 | Event Note ---
Awaiting evaluation by case management. Vital signs are stable. Patient is in no acute distress.
--- NOTE | 2021-09-30 12:59 | Event Note ---
Date: 09/30/21 S: No events reported overnight O: Vital Signs - 24 hr 09/29/21 09/29/21 09/30/21 18:20 20:22 02:44 Temperature 98.0 F 98.4 F Pulse Rate 88 98 H 102 H Respiratory 19 18 18 Rate Blood Pressure 208/123 100/73 118/57 [Right] O2 Sat by Pulse 97 96 98 Oximetry A/P: Patient brought in after welfare check/being evicted. Patient refusing labs. Awaiting placement per case management
[2021-10-05] MEDS ORDERED: ZOLPIDEM 5 MG TAB PO ONE (00:45)
--- NOTE | 2021-10-06 11:20 | Event Note ---
Date: 10/06/21 No overnight issues. Vital signs stable. Patient is eating breakfast with no difficulties. Patient is case management for disposition.
[2021-10-06 19:56] VITALS: BP 120/60
--- NOTE | 2021-10-07 17:00 | Event Note ---
family service caseworker unable to find placement. Patient provided bus pass and assisted resources.
== END 2021-10-07 17:22 | disposition home or self-care (01) ==
LOC: EEVIPCON 13:14 → ED 13:14
DX: R53.1 Weakness (principal); I10 Essential (primary) hypertension; F17.200 Nicotine dependence, unspecified, uncomplicated; F31.9 Bipolar disorder, unspecified
CPT/HCPCS: 96360; 99284

== ENCOUNTER 2021-10-09 15:33 | Emergency (ER) | payer MEDICAID ==
[2021-10-09 15:40] VITALS: BP 147/69
== END 2021-10-10 05:29 | disposition left against medical advice (07) ==
LOC: ED 15:33
DX: Z59.00 Homelessness unspecified (principal); Z53.21 Procedure and treatment not carried out due to patient leaving prior to being seen by health care provider

== ENCOUNTER 2021-10-13 09:10 | Emergency (ER) | payer MEDICAID ==
--- NOTE | 2021-10-13 09:16 | Emergency Department Report ---
ED General Adult HPI - General Chief complaint: Weakness Stated complaint: WEAKNESS Source: patient Mode of arrival: Wheelchair Limitations: No Limitations - History of Present Illness Initial comments: Patient presents by EMS from a bus stop. He does not know who called EMS. Patient states that he really does not know why he is here. He does admit that he is weak but he has been weak for a long time. He admits that he is homeless and would like a place to sleep. I have informed him that we do not allow people just to sleep in the hospital. They need a medical reason to be here. Patient does not have any complaint. He has no chest pain or cough. Has no shortness of breath. He has no focal weakness. He has no fevers or chills. There is no vomiting or diarrhea. Again, he does not know why he is here. - Related Data Previous Rx's Medication Instructions Recorded Last Taken Type ARIPiprazole 5 mg PO QDAY #30 tablet 06/28/21 Unknown Rx Ascorbic Acid [Vitamin C] 500 mg PO BID #60 tablet 06/28/21 Unknown Rx Sertraline [Zoloft] 25 mg PO QDAY #30 tablet 06/28/21 Unknown Rx traZODone [Desyrel] 50 mg PO QHS PRN #30 tab 06/28/21 Unknown Rx Allergies Allergy/AdvReac Type Severity Reaction Status Date / Time No Known Allergies Allergy Verified 09/28/21 14:52 ED Review of Systems ROS: Stated complaint: WEAKNESS Other details as noted in HPI Comment: All other systems reviewed and negative Constitutional: denies: fever Eyes: denies: vision change ENT: denies: throat pain Respiratory: denies: cough Cardiovascular: denies: chest pain Endocrine: denies: unexplained weight loss Gastrointestinal: denies: abdominal pain Genitourinary: denies: dysuria Musculoskeletal: denies: back pain Skin: denies: rash Neurological: as per HPI Hematological/Lymphatic: denies: easy bruising ED Past Medical Hx - Past Medical History Hx Hypertension: Yes Hx Psychiatric Treatment: (bipolar, MDD) - Social History Smoking Status: Current Some Day Smoker - Medications Home Medications: Home Medications Medication Instructions Recorded Confirmed Last Taken Type ARIPiprazole 5 mg PO QDAY #30 tablet 06/28/21 Unknown Rx Ascorbic Acid [Vitamin C] 500 mg PO BID #60 tablet 06/28/21 Unknown Rx Sertraline [Zoloft] 25 mg PO QDAY #30 tablet 06/28/21 Unknown Rx traZODone [Desyrel] 50 mg PO QHS PRN #30 tab 06/28/21 Unknown Rx ED Physical Exam - General Limitations: No Limitations, Other (Pulse ox noted and) General appearance: alert, other (Disheveled) - Head Head exam: Present: atraumatic, normocephalic - Eye Eye exam: Present: normal appearance, EOMI. Absent: scleral icterus - ENT ENT exam: Present: normal orophraynx, normal external ear exam - Neck Neck exam: Present: normal inspection, meningismus - Respiratory Respiratory exam: Present: normal lung sounds bilaterally. Absent: respiratory distress - Cardiovascular Cardiovascular Exam: Present: regular rate, normal rhythm - GI/Abdominal GI/Abdominal exam: Present: soft. Absent: distended, tenderness - Extremities Exam Extremities exam: Present: normal capillary refill - Back Exam Back exam: Absent: CVA tenderness (R), CVA tenderness (L) - Neurological Exam Neurological exam: Present: alert, oriented X3, CN II-XII intact, normal gait (I did see him ambulate in the room). Absent: motor sensory deficit - Psychiatric Psychiatric exam: Present: normal affect, normal mood - Skin Skin exam: Present: warm, dry ED Course Vital Signs 10/13/21 10/13/21 07:36 07:39 Temperature 97.3 F L Pulse Rate 60 Respiratory 16 Rate Blood Pressure 103/61 [Left] O2 Sat by Pulse 99 Oximetry - Reevaluation(s) Reevaluation #1: 10/13/21 09:17 Patient was offered a retirement referral which she accepted. ED Medical Decision Making - Medical Decision Making Patient was brought in by ambulance for reports of weakness per EMS. Patient states that he does not know why he is here. He admits that he is weak, but that is nothing new. I did see him physically ambulate in the room. Patient was discharged to a retirement. He has no medical complaint. He is not concerned for anything. He asked if he could just sleep here and was informed that we do not allow that since we are in emergency department. Critical Care Time: No Critical care attestation.: If time is entered above; I have spent that time in minutes in the direct care of this critically ill patient, excluding procedure time. ED Disposition Clinical Impression: Generalized weakness, Homeless Disposition: HOME / SELF CARE / HOMELESS Is pt being admited?: No Condition: Stable Instructions: Weakness Additional Instructions: Return for problems. See a doctor for recheck. Referrals: PRISCILLA SAAVEDRA MD [Staff Physician] - 3-5 Days
[2021-10-13 09:55] VITALS: BP 144/90
== END 2021-10-13 11:14 | disposition home or self-care (01) ==
LOC: ED 09:10
DX: R53.1 Weakness (principal); Z59.00 Homelessness unspecified
CPT/HCPCS: 99283